=== PATIENT | female | born 1935 | race Caucasian/White ===

== ENCOUNTER → 2016-07-07 | Outpatient (CLI) | payer MEDICARE, BC ==
[2016-07-07 12:13] LABS: Blood Urea Nitrogen 12 mg/dL (7-17); Non-African American GFR(MDRD) >60 (>60 ml/min/1.73 sqM)
--- NOTE | 2016-07-07 14:02 | CT ---
EXAMINATION TYPE: CT abdomen wo/w con DATE OF EXAM: 07/07/2016 1:44 PM HISTORY: Flank and back pain for 6-[address] DLP: 2044mGycm Automated Exposure Control for Dose Reduction was Utilized. CONTRAST: CT scan of the abdomen is performed with oral and without and with IV Contrast, patient injected with 100 mL of Omnipaque 300. COMPARISON: None. 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 There is prominence of the intra-arterial fat noted. A prominent right calcified paraesophageal lymph node on axial image 1 as noted. LIVER/GB: Liver is diffusely low dense on noncontrast images consistent with diffuse fatty infiltrati on. Occasional punctate calcification is present. Cholecystectomy clips are noted. PANCREAS: No significant abnormality is seen. SPLEEN: There are scattered calcifications throughout the spleen. ADRENALS: No significant abnormality is seen. KIDNEYS: Noncontrast images show a single 1 mm punctate calculus upper pole level left kidney on renetta nal image 62. Central calcification upper to mid pole level right kidney centrally and centrally left kidney is presumed vascular. Postcontrast images show symmetric cortical medullary uptake and excret ion from both kidneys. There is a focal area of cortical scarring posterior medially upper to mid edgar e level left kidney axial image 28. No hydronephrosis is evident bilaterally. There is 1.1 cm exophyt ic low dense lesion posterior medially upper to mid pole right kidney too small to further characteri ze but Hounsfield units average between 10-15 without postcontrast enhancement suggesting simple cyst . There is subcentimeter low dense lesion anterior to this on axial image 32 series 10 that is too sm all to further characterize but presumed benign. No concerning solid or cystic renal mass is evident bilaterally. BOWEL: No significant abnormality is seen. LYMPH NODES: No greater than 1cm abdominal or pelvic lymph nodes are appreciated. OSSEOUS STRUCTURES: There is posterior fusion hardware from L4 through S1 levels bilaterally. There a re bilateral laminectomy defect with spinous process resection. There is loss of normal lumbar lordos is. There is moderate to advanced disc space narrowing with sclerosis and spurring at L2-L3 and L3-L4 levels. There is multilevel facet arthropathy in the mid lumbar spine. OTHER: There is moderate to severe calcified atherosclerotic change of aorta and branch vessels. Ther e is some ectasia but no greater than 3 cm aneurysmal change. IMPRESSION: 1. No worrisome solid or cystic renal mass is seen. There are 2 lesions upper pole level right kidney presumed benign as detailed above. There is single 1 mm punctate nonobstructing calculus suspected u pper pole level left kidney. There is focal cortical scarring in the left kidney upper to mid pole le selam posterior medially.
== END | disposition home or self-care (01) ==
LOC: RADCTMAIN 11:33
PROVIDERS: ATTEND Urology
DX: N28.89 Other specified disorders of kidney and ureter (principal)
CPT/HCPCS: 82565; 84520; 74170; 36415; Q9967